=== PATIENT | female | born 1940 | race Caucasian/White ===

== ENCOUNTER 2017-04-23 11:14 | Emergency (ER) | payer MEDICARE ==
--- NOTE | 2017-04-23 12:26 | XR ---
EXAMINATION TYPE: XR knee complete LT DATE OF EXAM: 04/23/2017 COMPARISON: NONE HISTORY: 76-year-old female with pain after fall TECHNIQUE: 3 views FINDINGS: Extensor mechanism is intact. No significant knee joint effusion. There is degenerative spurring with in the patellofemoral compartment with suggestion of joint space narrowing in the medial compartment. No acute fracture, subluxation, or dislocation is seen. IMPRESSION: Medial and patellofemoral compartmental osteoarthrosis. No acute osseous abnormality seen.
--- NOTE | 2017-04-23 12:28 | XR ---
Right ankle and right foot HISTORY: Pain and swelling 3 views of the right ankle correlated to 3 views of the right foot same date. Degenerative change present at the first metatarsophalangeal joint with mild hallux valgus deformity. There is a plantar calcaneal spur. Some spurring suspected at the tibiotalar joint, intertarsal join ts. Enthesophyte present at the insertion of the Achilles tendon. Alignment and bone mineralization a re maintained. Soft tissue swelling is present especially at the level of lateral ankle. IMPRESSION: No acute fracture or dislocation is evident, follow-up as indicated.
--- NOTE | 2017-04-23 12:48 | ED ---
General Adult HPI - General Chief complaint: Extremity Injury, Lower Stated complaint: RT ANKLE AND KNEE INJURY FROM FALL Time Seen by Provider: 04/23/17 11:39 Source: patient, RN notes reviewed Mode of arrival: ambulatory Limitations: no limitations - History of Present Illness Initial comments: 76-year-old female who presents emergency room today with a chief complaint of an injury to the right ankle and left knee. She does admit that she had a trip and fall yesterday. She states that she's noticed swelling to the area. States that his walking with a limp. She denies any head injury or loss consciousness. Denies any other complaints or associated symptoms. Patient denies any recent fever, chills, shortness of breath, chest pain, back pain, abdominal pain, nausea or vomiting, numbness or tingling, dysuria or hematuria, constipation or diarrhea, headaches or visual changes, or any other complaints. - Related Data Home Medications Medication Instructions Recorded Confirmed Ibuprofen [Motrin] 800 mg PO Q8H PRN 04/23/17 04/23/17 Levothyroxine Sodium [Synthroid] 88 mcg PO DAILY 04/23/17 04/23/17 Allergies Allergy/AdvReac Type Severity Reaction Status Date / Time epinephrine Allergy Unknown Verified 04/23/17 12:16 pooja Allergy Unknown Verified 04/23/17 12:18 Penicillins Allergy Unknown Verified 04/23/17 12:16 walnut Allergy Unknown Verified 04/23/17 12:18 Review of Systems ROS Statement: Those systems with pertinent positive or pertinent negative responses have been documented in the HPI. ROS Other: All systems not noted in ROS Statement are negative. Past Medical History Past Medical History: Thyroid Disorder History of Any Multi-Drug Resistant Organisms: None Reported Past Surgical History: Appendectomy, Breast Surgery Past Psychological History: No Psychological Hx Reported Smoking Status: Never smoker Past Alcohol Use History: None Reported Past Drug Use History: None Reported General Exam - General Exam Comments Initial Comments: General: The patient is awake and alert, in no distress, and does not appear acutely ill. Neck: The neck is supple, there is no tenderness or JVD. Cardiovascular: There is a regular rate and rhythm. No murmur, rub or gallop is appreciated. Respiratory: Lungs are clear to auscultation, respirations are non-labored, breath sounds are equal. No wheezes, stridor, rales, or rhonchi. Musculoskeletal: Patient does have moderate swelling to the right ankle over the lateral aspect. Shows good range of motion. Sensation intact with pulses equal bilaterally 2+. Patient does have mild tenderness over the lateral malleolus and in the ATFL area. No other bony tenderness. No bony tenderness to the right knee. Shows full range of motion. Strength 5/5 Neurological: A&O x 3. CN II-XII intact, There are no obvious motor or sensory deficits. Coordination appears grossly intact. Speech is normal. Skin: Skin is warm and dry and no rashes or lesions are noted. Psychiatric: Normal mood and affect. Limitations: no limitations Course Vital Signs 04/23/17 11:34 Temperature 98.0 F Pulse Rate 90 Respiratory 20 Rate Blood Pressure 191/92 O2 Sat by Pulse 98 Oximetry Medical Decision Making - Medical Decision Making X-rays reviewed and are negative. Results were discussed with the patient. Patient advised continued ice elevate. Disposition Clinical Impression: Ankle sprain Disposition: HOME SELF-CARE Condition: Good Instructions: Ankle Sprain (ED) Additional Instructions: Please continue to ice elevate the affected areas 4 times daily for 20 minutes at a time. Please use Tylenol/ibuprofen for pain as needed. Please follow-up family doctor or orthopedics in 7-10 days for repeat x-rays if symptoms are not improved. Please return to emergency room for any other concerns. Referrals: Farhana Gruber MD [Primary Care Provider] - 1-2 days Time of Disposition: 12:47
[2017-04-23 13:38] VITALS: BP 175/81; PULSE 85; RESP 18; TEMP 97.9
== END 2017-04-23 13:38 | disposition home or self-care (01) ==
LOC: EC 11:14
DX: S93.401A Sprain of unspecified ligament of right ankle, initial encounter (principal); S89.92XA Unspecified injury of left lower leg, initial encounter; R03.0 Elevated blood-pressure reading, without diagnosis of hypertension; E07.9 Disorder of thyroid, unspecified; Z79.899 Other long term (current) drug therapy; Z88.0 Allergy status to penicillin; Z88.8 Allergy status to other drugs, medicaments and biological substances; Z91.018 Allergy to other foods; W18.09XA Striking against other object with subsequent fall, initial encounter
CPT/HCPCS: 99283